=== PATIENT | male | born 1995 | race African-American/Black ===

== ENCOUNTER 2020-05-29 13:06 | Emergency (ER) | payer OTHER ==
[~2020-05-29] VITALS: Ht 188 cm; Wt 81.7 kg
[2020-05-29] MEDS ORDERED: PROAIR HFA8.5 GM INH (15:11)
[2020-05-29] MEDS ORDERED: PREDNISONE 20 M20 M1 PO (15:11)
[2020-05-29 15:27] VITALS: BP 1577/86
== END 2020-05-29 15:14 | disposition home or self-care (01) ==
LOC: ER 13:06
DX: J45.901 Unspecified asthma with (acute) exacerbation (principal)

== ENCOUNTER → 2021-01-23 | Outpatient (CLI) | payer OTHER ==
[~2021-01-23] MED LIST: PREDNISONE 20 M20 M1 PO; PROAIR HFA8.5 GM INH
[2021-01-23 16:38] LABS: URINE BILIRUBIN NEGATIVE (Negative); URINE BLOOD NEGATIVE (Negative); URINE CLARITY CLEAR; URINE COLOR YELLOW; URINE GLUCOSE-RANDOM* NEGATIVE (Negative); URINE KETONES NEGATIVE (Negative); URINE LEUKOCYTES-REFLEX NEGATIVE (Negative); URINE NITRITE-REFLEX NEGATIVE (Negative); URINE PROTEIN (DIPSTICK) NEGATIVE (Negative); URINE SPECIFIC GRAVITY >= 1.030 (1.005-1.035); URINE UROBILINOGEN 0.2 E.U./dl (0.2-1.0)
[2021-01-23 16:39] LABS: ABSOLUTE NEUTROPHILS 1.7 thou/uL (1.4-8.2); BASOPHILS 1.2 % (0.0-2.0); EOSINOPHILS 4.5 % (0.0-3.0); HEMATOCRIT 42.9 % (42.0-52.0); HEMOGLOBIN 14.2 gm/dL (14.0-18.0); LYMPHOCYTES 44.7 % (24.0-44.0); MCH 27.7 pg (26.0-34.0); MCHC 33.2 g/dL (28.0-37.0); MCV 83.4 fL (80.0-100.0); MONOCYTES 17.1 % (1.0-8.0); PLATELET COUNT 283 thou/uL (150-400); POLYS 32.5 % (36.0-66.0); RBC 5.14 mil/uL (4.50-6.00); RDW 13.4 % (10.5-14.5); WBC 5.1 thou/uL (4.0-11.0)
[2021-01-23 16:57] LABS: ALBUMIN 4.1 g/dL (3.4-5.0); ANION GAP 8 mmol/L (7-16); BUN 12 mg/dL (7-18); CALCIUM 8.8 mg/dL (8.5-10.1); CHLORIDE 102 mmol/L (98-107); CHOLESTEROL 208 mg/dL (<200); CO2 27 mmol/L (21-32); CREATININE 1.1 mg/dL (0.7-1.3); GLUCOSE 85 mg/dL (74-106); HDL CHOLESTEROL 53 mg/dL (>40); LDL CHOLESTEROL 127 mg/dL (<100); POTASSIUM 3.9 mmol/L (3.5-5.1); SGOT 18 U/L (15-37); SGPT 25 U/L (30-65); SODIUM 137 mmol/L (136-145); TC:HDL 3.9 Ratio (Not establshd); TOTAL BILIRUBIN 0.3 mg/dL (0.2-1.0); TOTAL PROTEIN 8.3 g/dL (6.4-8.2); TRIGLYCERIDE 143 mg/dL (<150); VLDL 29 mg/dL (<40)
== END ==
LOC: LAB 16:15
PROVIDERS: ATTEND Nurse Practitioner
DX: Z00.00 Encounter for general adult medical examination without abnormal findings (principal)

== ENCOUNTER 2021-05-02 21:06 | Emergency (ER) | payer OTHER ==
[~2021-05-02] VITALS: Ht 188 cm; Wt 90.7 kg
[2021-05-02 22:48] LABS: ABSOLUTE NEUTROPHILS 2.1 thou/uL (1.4-8.2); BASOPHILS 0.8 % (0.0-2.0); EOSINOPHILS 3.3 % (0.0-3.0); HEMATOCRIT 41.3 % (42.0-52.0); MCH 27.9 pg (26.0-34.0); MCHC 33.8 g/dL (28.0-37.0); MCV 82.4 fL (80.0-100.0); MONOCYTES 15.8 % (1.0-8.0); PLATELET COUNT 252 thou/uL (150-400); POLYS 35.1 % (36.0-66.0); RBC 5.01 mil/uL (4.50-6.00); WBC 5.9 thou/uL (4.0-11.0)
[2021-05-02 22:52] LABS: CALCIUM 8.9 mg/dL (8.5-10.1); CREATININE 1.1 mg/dL (0.7-1.3); POTASSIUM 4.4 mmol/L (3.5-5.1)
[2021-05-02 23:01] LABS: ALBUMIN 3.8 g/dL (3.4-5.0); TOTAL BILIRUBIN 0.5 mg/dL (0.2-1.0); TOTAL PROTEIN 8.1 g/dL (6.4-8.2)
[2021-05-03] MEDS ORDERED: TESSALON PERLE100 MG PO (00:35)
[2021-05-03 00:43] VITALS: BP 138/94
--- NOTE | 2021-05-03 14:53 | EKG ---
[address] [address] [place] [address] ELECTROCARDIOGRAM REPORT Name: SHERRI HICKEY Room #: DEP MELIZA Solis#: [id number] Admission: 05/02/21 Attend Phys: Discharge: 05/03/21 Date of : [birth year] Report #: [id number] [facility] ED Test Date: 2021-05-02 Test Time: 21:16:01 Pat Name: SHERRI HICKEY Department: Room: Gender: Contract Engineer: CÉSAR : 1995 Requested By: Murray Tay Order Number: [id number] MD: Nabor Rodrigues Measurements Intervals [place] Rate: 72 P: 5 [place]: 162 QRS: 30 QRSD: 99 T: 35 QT: 399 QTc: 437 Interpretive Statements Sinus rhythm Probable left ventricular hypertrophy ST elev, probable normal early repol pattern No previous ECG available for comparison Electronically Signed On 05-03-2021 14:53:40 MANAGER COMMUNICATION by Nabor Rodrigues [email or web address] <ELECTRONICALLY SIGNED> By: Nabor Rodrigues MD, [facility] 05/03/21 1453 [id number] Nabor Rodrigues MD, FACC /EPI
== END 2021-05-03 00:44 | disposition home or self-care (01) ==
LOC: ER 21:06
PROVIDERS: Emergency Medicine
DX: J06.9 Acute upper respiratory infection, unspecified (principal); Z20.822 Contact with and (suspected) exposure to COVID-19; R05.9 Cough, unspecified; R09.81 Nasal congestion; J45.909 Unspecified asthma, uncomplicated; I10 Essential (primary) hypertension; Z79.899 Other long term (current) drug therapy